=== PATIENT | male | born 1945 | race Two or more races ===

== ENCOUNTER 2022-04-08 10:52 | Emergency (ER) | payer OTHER ==
[~2022-04-08] VITALS: Ht 162.6 cm; Wt 66.7 kg
[2022-04-08] MEDS ORDERED: SYNTHROID100 MCG PO (11:28)
[2022-04-08] MEDS ORDERED: DELZICOL400 M1 PO (11:28)
[2022-04-08] MEDS ORDERED: ATORVASTATIN CA20 MG PO (11:29)
[2022-04-08] MEDS ORDERED: FOLIC ACID1 MG PO (11:30)
[2022-04-08] MEDS ORDERED: ECOTRIN81 MG PO (11:30)
[2022-04-08] MEDS ORDERED: AMLODIPINE-OLM1 EAC2 PO (11:30)
[2022-04-08] MEDS ORDERED: ZIAC 5-6.25 MG1 EACH PO (11:30)
[2022-04-08] MEDS ORDERED: FISH OIL 1,001000 MG PO (11:31)
== END 2022-04-08 20:33 | disposition home or self-care (01) ==
LOC: ER 10:52
DX: K52.9 Noninfective gastroenteritis and colitis, unspecified (principal); Z88.8 Allergy status to other drugs, medicaments and biological substances; I10 Essential (primary) hypertension; K27.9 Peptic ulcer, site unspecified, unspecified as acute or chronic, without hemorrhage or perforation